=== PATIENT | male | born 1935 | race Caucasian/White ===

== ENCOUNTER 2023-08-10 14:41 | Inpatient (IN) | payer OTHER, SELFPAY ==
[2023-08-10] VITALS (12 sets, daily range): BP systolic 106–134; BP diastolic 51–71; BMI 29.0
--- NOTE | 2023-08-10 09:52 | ED.GENMED ---
History of Present Illness
<Karol Hawk PA-C - Last Filed: 08/10/23 15:54>
General
Chief Complaint: Cough
Source: patient
Time Seen by Provider: 08/10/23 09:51
Nursing documentation reviewed up to this point in time: agreed with
Travel History
Have you had any contact with someone who has COVID-19?: No
Do you have any symptoms of coronavirus? Fever > 100 degrees, chills, cough, shortness of breath, sore throat, loss of taste or smell, muscle aches, or headache?: Yes
Symptoms:: cough, fever
History of Present Illness
History of Present Illness:
87-year-old male with a past medical history of asthma, non insulin dependent diabetes, BPH, A-fib presenting emergency department today with cough for the past few weeks. Patient states that he always has a cough, however it has been getting
progressively worse the past few weeks and he developed thick yellow sputum production. Patient also states that he has had shortness of breath with this. He does not use oxygen at baseline. He developed fevers of 102 today at his rehab facility
and was seen by Dr. Bello who, due to his lower pulse ox, fever, and symptoms despite neb treatment, patient was sent to the emergency department. Patient denies chest pain, nausea or vomiting, diarrhea. Patient also complains of increasing
discomfort to his right hip wound. Patient has had this wound chronically following his hip operation. Family in room he states that patient is frequently hospitalized for pneumonia. Patient denies active drainage from the wound. Patient also
concern about possible UTI but has no active symptoms at this time patient notes that he is very fatigued and also did not take many breaks when talking.
Past History
<Karol Hawk PA-C - Last Filed: 08/10/23 15:54>
Past History
ED Past Medical History: Arrthythmia (Atrial fibrillation), Asthma, Cancer (colon), CVA, Hypercholesterolemia, NIDDM and Other (pneumonia, rectal bleeding)
ED Past Surgical History: Appendectomy, Bowel resection and Orthopedic
Social History
Tobacco: Non-smoker
Alcohol: Occasional
Drug: None
Personal:
Living: with family
Employment: Retired
Family History
Family History: Other (Noncontributory)
Review of Systems
<Karol Hawk PA-C - Last Filed: 08/10/23 15:54>
Review of Systems
All Other Systems: ROS reviewed and negative except as documented in HPI and ROS
Phy Exam
<CAROL Logan Last Filed: 08/10/23 15:54>
Physical Exam
Physical Exam:
General: Patient appears ill
Skin: 4 cm chronic wound with some mild purulence and warmth to touch, no surrounding erythema overlying right hip. No active drainage.
Head: Normocephalic, atraumatic
Cardiac: Regular rate and rhythm, no murmurs. No tenderness palpation of external chest wall
Pulm: Increased respiratory rate, increased respiratory effort, conversational dyspnea. Diffuse rhonchi heard in all lung bases. 90% on RA, 96% on 2L.
Abdomen: No tenderness to palpation, abdomen is nondistended.
Musculoskeletal: Patient is no tenderness palpation of the right hip joint, full passive range of motion.
Neuro: AAOx3, CN II-XII intact.
Course
<Karol Hawk PA-C - Last Filed: 08/10/23 15:54>
Orders/Labs/Results
Orders:
Orders
08/10/23 09:45
CBC/With Diff [Complete Blood Count/With Diff] Urgent
Comprehensive Metabolic Panel Urgent
NT-proBNP Urgent
Comment: ADD ON
08/10/23 09:48
COVID-19 Antigen Urgent
Source: Nasal Swab
Blood Culture Q30M
DAE Source: Blood/Venous
Specimen Description:
Influenza A+B Rapid Molecular Urgent
DAE Source: Nasal Swab
Specimen Description:
08/10/23 10:03
CR Chest - 2 Views Urgent
Comment:
Reason For Exam: shortness of breath
08/10/23 10:04
Urinalysis Reflex To Culture Urgent
08/10/23 10:15
Lactic Acid Urgent
Blood Culture Q30M
DAE Source: Blood/Venous
Specimen Description:
08/10/23 10:34
Ipratropium/Albuterol Sulfate [Duoneb] 3 ml INH R NOW ONE
08/10/23 11:19
Add On- LAB Urgent
Tests Added?: bnp
08/10/23 13:19
Piperacillin/Tazo 4.5 Gram [Zosyn] 4.5 gram in 100 ml IV NOW
08/10/23 13:24
Ipratropium/Albuterol Sulfate [Duoneb] 3 ml INH R NOW STA
08/10/23 14:00
VANCOMYCIN Pharmacy to Dose [VANCOCIN Pharmacy to Dose] 1 each Pharmacy To Prepare [Call Pharmacy To Prepare] 0 ml IV PER PROTOCOL
08/10/23 14:11
Admit/Transfer Patient As Directed
Co-Sign Provider:
Level of Care: Inpatient admission
Assign to:: Telemetry
Physician / Group: Dr Berto Aldana
Diagnosis: pneumonia
Reason for Telemetry: Arrhythmia
Date to Stop Telemetry: 08/13/23
Time to Stop Telemetry: 11:00
Reason for Hospitalization: pnuemonia
Expected length of stay greater than two midnights?: Yes
ELOS- Estimated Length of Stay in days: 3
I certify the patient meets the requirements for IP care: Yes
08/10/23 14:13
Code Status As Directed
Resuscitation Status: Do not resuscitate
Reached after discussion with pt or family/Healthcare POA: Yes
08/10/23 14:17
DNR Bracelet Application ONCE
08/13/23 11:00
DC Protocol for Telemetry ONCE
Abnormal Lab Results
08/10/23
09:45
WBC 10.9 H 10^3/uL
(4.8-10.8)
RBC 2.99 L 10^6/uL
(4.70-6.10)
Hgb 8.1 L g/dL
(13.0-18.0)
Hct 25.2 L %
(39.0-52.0)
MCHC 32.1 L g/dL
(33.0-37.0)
RDW 15.3 H %
(11.5-14.5)
Abs Immat Gran (auto) 0.1 H 10^3/uL
(0-0.05)
Absolute Neuts (auto) 8.5 H 10^3/uL
(1.4-6.5)
Immature Gran % 0.6 H %
(0-0.5)
Neutrophils % 78.2 H %
(42.2-75.2)
Lymphocytes % 14.5 L %
(20.5-51.1)
Creatinine 0.6 L mg/dL
(0.7-1.3)
Glucose 138 H mg/dl
(70-99)
Calcium 8.1 L mg/dl
(8.4-10.2)
Total Protein 5.6 L g/dl
(6.3-8.2)
Albumin 2.2 L g/dl
(3.5-5.0)
08/10/23 09:45
08/10/23 09:45
Vital Signs
Initial and Last Documented VS:
Initial Vital Signs
Temp Pulse Resp BP Pulse Ox
98.4 F 87 22 116/64 94
08/10/23 09:30 08/10/23 09:30 08/10/23 09:30 08/10/23 09:30 08/10/23 09:30
Last Documented Vital Signs
Temp Pulse Resp BP Pulse Ox
98.4 F 87 22 116/64 94
08/10/23 09:30 08/10/23 09:30 08/10/23 09:30 08/10/23 09:30 08/10/23 09:30
<Kvng Dolan, DO - Last Filed: 08/10/23 11:19>
Orders/Labs/Results
Orders:
Orders
08/10/23 09:45
CBC/With Diff [Complete Blood Count/With Diff] Urgent
Comprehensive Metabolic Panel Urgent
NT-proBNP Urgent
Comment: ADD ON
08/10/23 09:48
COVID-19 Antigen Urgent
Source: Nasal Swab
Blood Culture Q30M
DAE Source: Blood/Venous
Specimen Description:
Influenza A+B Rapid Molecular Urgent
DAE Source: Nasal Swab
Specimen Description:
08/10/23 10:03
CR Chest - 2 Views Urgent
Comment:
Reason For Exam: shortness of breath
08/10/23 10:04
Urinalysis Reflex To Culture Urgent
08/10/23 10:15
Lactic Acid Urgent
Blood Culture Q30M
DAE Source: Blood/Venous
Specimen Description:
08/10/23 10:34
Ipratropium/Albuterol Sulfate [Duoneb] 3 ml INH R NOW ONE
08/10/23 11:19
Add On- LAB Urgent
Tests Added?: bnp
08/10/23 13:19
Piperacillin/Tazo 4.5 Gram [Zosyn] 4.5 gram in 100 ml IV NOW
08/10/23 13:24
Ipratropium/Albuterol Sulfate [Duoneb] 3 ml INH R NOW STA
08/10/23 14:00
VANCOMYCIN Pharmacy to Dose [VANCOCIN Pharmacy to Dose] 1 each Pharmacy To Prepare [Call Pharmacy To Prepare] 0 ml IV PER PROTOCOL
08/10/23 14:11
Admit/Transfer Patient As Directed
Co-Sign Provider:
Level of Care: Inpatient admission
Assign to:: Telemetry
Physician / Group: Dr Berto Aldana
Diagnosis: pneumonia
Reason for Telemetry: Arrhythmia
Date to Stop Telemetry: 08/13/23
Time to Stop Telemetry: 11:00
Reason for Hospitalization: pnuemonia
Expected length of stay greater than two midnights?: Yes
ELOS- Estimated Length of Stay in days: 3
I certify the patient meets the requirements for IP care: Yes
08/10/23 14:13
Code Status As Directed
Resuscitation Status: Do not resuscitate
Reached after discussion with pt or family/Healthcare POA: Yes
08/10/23 14:17
DNR Bracelet Application ONCE
08/13/23 11:00
DC Protocol for Telemetry ONCE
Abnormal Lab Results
08/10/23
09:45
WBC 10.9 H 10^3/uL
(4.8-10.8)
RBC 2.99 L 10^6/uL
(4.70-6.10)
Hgb 8.1 L g/dL
(13.0-18.0)
Hct 25.2 L %
(39.0-52.0)
MCHC 32.1 L g/dL
(33.0-37.0)
RDW 15.3 H %
(11.5-14.5)
Abs Immat Gran (auto) 0.1 H 10^3/uL
(0-0.05)
Absolute Neuts (auto) 8.5 H 10^3/uL
(1.4-6.5)
Immature Gran % 0.6 H %
(0-0.5)
Neutrophils % 78.2 H %
(42.2-75.2)
Lymphocytes % 14.5 L %
(20.5-51.1)
Creatinine 0.6 L mg/dL
(0.7-1.3)
Glucose 138 H mg/dl
(70-99)
Calcium 8.1 L mg/dl
(8.4-10.2)
Total Protein 5.6 L g/dl
(6.3-8.2)
Albumin 2.2 L g/dl
(3.5-5.0)
08/10/23 09:45
08/10/23 09:45
Vital Signs
Initial and Last Documented VS:
Initial Vital Signs
Temp Pulse Resp BP Pulse Ox
98.4 F 87 22 116/64 94
08/10/23 09:30 08/10/23 09:30 08/10/23 09:30 08/10/23 09:30 08/10/23 09:30
Last Documented Vital Signs
Temp Pulse Resp BP Pulse Ox
98.4 F 87 22 116/64 94
08/10/23 09:30 08/10/23 09:30 08/10/23 09:30 08/10/23 09:30 08/10/23 09:30
<Karol Hawk PA-C - Last Filed: 08/10/23 15:54>
MDM/Problems Addressed
Differential Diagnosis Includes:
Differentials include pneumonia, influenza, COVID, acute heart failure, atrial fibrillation, asthma exacerbation
MDM/Problems Addressed:
shortness of breath
cough
Chronic conditions affecting care: DM, HTN and Asthma
Acute Exacerbation and/or Progression of Chronic Illness: DM, HTN and Asthma
<Karol Hawk PA-C - Last Filed: 08/10/23 15:54>
*Radiology
Radiology exam reviewed: preliminary read by ED provider (small right sided pleural effusion)
*Pulse Oximetry
Patient hypoxic: yes
*Critical Care Note
Total Time (30-74mins, 75-104mins- exclusive of procedures): Not Applicable
Data Reviewed
Review of Other/Old Records Reveals: Records (Reviewed ER physician documentation from 05/02/23) and Discharge Summary (Reviewed discharge summary from 05/04/2023)
Source: patient and records
<Karol Hawk PA-C - Last Filed: 08/10/23 15:54>
Patient Management
Escalation/DeEscalation of care consider admission/obs:
87-year-old male with a past medical history of asthma, non insulin dependent diabetes, BPH, A-fib presenting emergency department today with cough for the past few weeks. Patient states that he always has a cough, however it has been getting
progressively worse the past few weeks and he developed thick yellow sputum production. Patient hypoxic to 88 to 90% on room air, 96% on 2 L. Patient does not usually use oxygen at baseline. Patient has diffuse rhonchi on exam, ill-appearing.
Patient found to have right lower lobe pneumonia with no evidence for pleural effusion. Due to patient's recent hospitalization/rehab, recurrent episodes of pneumonia, patient will be started on vancomycin and Zosyn. Patient will be admitted to
hospital service, patient excepted by hospitalist.
ED Attending Note
<Karol Hawk PA-C - Last Filed: 08/10/23 15:54>
-
Portions of this chart may have been created with voice recognition software.� Occasional wrong word or��sound alike� substitutions may have occurred due to the inherent limitations of voice recognition software.
<Kvng Dloan DO - Last Filed: 08/10/23 11:19>
ED Attending Note
Patient seen and examined by attending physician: Yes
I performed the substantive portion of visit, reviewed & personally made and approve the management plan that is documented in note by myself or MARI.: Yes
ED Attending Note:
Seen with PA examined independently 87-year-old male non-smoker but used to own a bar, heavy secondhand smoke cough congestion fever admitted to [facility] recently had a hip replacement, by Dr. Naseem Ayala question of some wound dehiscence,
scheduled see Dr. Limon tomorrow--- apparently was admitted with an ileus at [facility]
Discharge Plan
Departure
Patient Disposition: Admit
Date of Disposition: 08/10/23
Time of Disposition: 13:27
Admit to: Med/Surg
Presentation/result/management discussed w/ accepting MD/DO: Hospitalist
Patient with high blood pressure during this ER visit?: No
Condition: Fair
Discharge Problem:
Hospital-acquired pneumonia, Hypoxia
Interventions
Interventions:
*Risk Screen - Suicide Last Done: 08/10/23 09:30
*General Assessment Last Done: 08/10/23 09:30
*Neglect/Abuse Screening Last Done: 08/10/23 09:30
ED- Pulmonary Assessment Last Done: 08/10/23 11:12
[2023-08-10 10:02] LABS: % Basophils 0.4 % (0-2); % Eosinophils 1.1 % (0-6); % Immature Granulocytes 0.6 % (0-0.5); % Lymphocytes 14.5 % (20.5-51.1); % Monocytes 5.2 % (1.7-9.3); % Neutrophils 78.2 % (42.2-75.2); Absolute Eosinophils 0.1 10^3/uL (0-0.7); Absolute Immature Granulocytes 0.1 10^3/uL (0-0.05); Absolute Lymphocytes 1.6 10^3/uL (1.2-3.4); Absolute Monocytes 0.6 10^3/uL (0.1-0.6); Absolute Neutrophils 8.5 10^3/uL (1.4-6.5); Hematocrit 25.2 % (39.0-52.0); Hemoglobin 8.1 g/dL (13.0-18.0); Mean Corp Hgb Conc. 32.1 g/dL (33.0-37.0); Mean Corpuscular Hgb 27.1 pg (27.0-31.0); Mean Corpuscular Volume 84.3 fL (80.0-94.0); Mean Platelet Volume 10.2 fL (7.4-10.4); Nucleated Red Blood Cells % 0 % (-); Platelet Count 305 10^3/uL (130-400); Red Blood Cell Count 2.99 10^6/uL (4.70-6.10); Red Cell Dist. Width 15.3 % (11.5-14.5); White Blood Cell Count 10.9 10^3/uL (4.8-10.8)
[2023-08-10 10:14] LABS: ALT (SGPT) 25 U/L (0-50); AST (SGOT) 35 U/L (17-59); Albumin 2.2 g/dl (3.5-5.0); Alkaline Phosphatase 123 U/L (38-126); Blood Urea Nitrogen 11 mg/dl (9-20); Calcium 8.1 mg/dl (8.4-10.2); Carbon Dioxide 23 mmol/L (22-30); Chloride 106 mmol/L (98-107); Estimated Creatinine Clearance 109 ml/min; Glucose 138 mg/dl (70-99); Potassium 3.8 mmol/L (3.5-5.1); Sodium 136 mmol/L (135-145); Total Bilirubin 0.8 mg/dl (0.2-1.3); Total Protein 5.6 g/dl (6.3-8.2); eGFR > 60.00
[2023-08-10 10:20] LABS: COVID-19 Antigen Negative (Negative)
[2023-08-10] MEDS: DUONEB 3 ML INH ×3 (10:41→17:48)
[2023-08-10 11:24] LABS: Lactic Acid 1.5 mmol/L (0.7-2.0)
[2023-08-10 12:18] LABS: NT-proBNP 2220 pg/ml
[2023-08-10] MEDS: ZOSYN 100 IV (14:18)
--- NOTE | 2023-08-10 15:08 | HPS.HSE ---
Addendum entered and electronically signed by Berto Aldana MD 08/11/23 10:07:
attending-
time spent 75 minutes
Addendum entered and electronically signed by Berto Aldana MD 08/11/23 00:11:
Attending Addendum-
I performed a history and physical exam of the patient and discussed his management with the resident. I reviewed the resident's note and agree with the documented findings and plan of care Patient presents from SNF at [facility] secondary to
hypoxia and cough has had repeated bouts of PNA in past. Patient feels sob and has wet moist cough Exam: GEN chronically ill appearing heart irreg irreg lungs diffuse rhonchi and soft LE- right hip incision from previous hip ORIF open and deep @
5cms b/l 2+ pitting edema
Plan:
# Acute Hypoxemic Respiratory Failure- wean o2 for sats > 92% cont to monitor
# Sepsis Secondary to HCAP- cont abx vanc/zosyn for broad spectrum coverage, check lactic acid and procal, reviewed cxr RLL PNA ? aspiration event, check speech eval check urine for strep/legionella c/s pulm
# Right Hip wound- opening incision from right total hip revision 07/10 - Dr. Limon, c/s ortho, wound care
# NIDDM- hold metformin start SSI accuchecks q ac q hs
# Parox A fib- cont eliquis
# HFpEF- cont lasix appears volume overloaded cont to monitor I and O daily weights
-PT OT apeech eval
-code- DNR AAOx3 d/w
Dispo Eventual DC back to [facility]
Time spent coordinating care, review of plan of care with resident, review of records, med rec, consults, notes, labs, rads, d/w nursing - mins
Original Note:
Family Physician
<Jena Mejia MD, Resident - Last Filed: 08/10/23 17:35>
-
Family Physician: Dior Dobbins
Chief Complaint
<Jena Mejia MD, Resident - Last Filed: 08/10/23 17:35>
-
cough, SOB
History of Present Illness
87-year-old male living with his in independent living facility ([facility]) with a past medical history of asthma, non insulin dependent diabetes, BPH, A-fib presenting emergency department today with cough for the past few weeks.� Patient
states that he always has a cough which has progressed with development of yellow/green sputum production. He also reports of SOB and has been getting with cough spasm. He denies dyspnea with rest.� He does not use oxygen at baseline.� Patient has
not walked since right hip replacement surgery done on 07/21/2023. The surgery was complicated with ileus which prolonged hospital stay. He was also treated with abx for 7 days for presumed pneumonia. He was then sent to rehab facility, developed
fevers at the facility and was seen by Dr Bello for his cough symptoms and was sent to ED due to low pulse ox, symptomatic with nebs. Patient denies chest pain, nausea or vomiting, diarrhea.� Patient also complains of increasing discomfort to his
right hip wound.� Patient has had this wound chronically following his hip operation.� Family in room he states that patient is frequently hospitalized for pneumonia.� Patient denies active drainage from the wound.� Patient also concern about
possible UTI but has no active symptoms at this time patient notes that he is very fatigued and also did not take many breaks when talking.
PCP is Dr Dior Dobbins . has discussed about the medical power of attornery, patient is DNR.
Medical History
<Jena Mejia MD, Resident - Last Filed: 08/10/23 17:35>
Past Medical History
Past Medical History: Reports Arrhythmia, CVA, Hypercholesterolemia and NIDDM
Additional Past Medical History:
Arrthythmia (Atrial fibrillation), Asthma, Cancer (colon), and Other (pneumonia, rectal bleeding)
Past Surgical History: Reports Appendectomy, Bowel Resection and Orthopedic (right hip replacement )
Social History
Tobacco: Non-smoker
Alcohol: Occasional
Drug: None
Personal:
Living: Assisted Living (with )
Family History
Family History: Not pertinent
Allergies / Home Medications
Allergies
Allergy/AdvReac Type Severity Reaction Status Date / Time
No Known Allergies Allergy Verified 08/10/23 09:30
Home Medications
tamsulosin 0.4 mg capsule 0.4 mg PO DAILY Urinary Issue 05/22/22
acetaminophen 500 mg tablet (Tylenol Extra Strength) 500 mg PO Q6HPRN PRN mild pain 05/02/23
apixaban 5 mg tablet (Eliquis) 5 mg PO BID@0800,2000 Blood Clot Prevention/Tx 05/02/23
atorvastatin 10 mg tablet 10 mg PO DAILY High Cholesterol 05/02/23
furosemide 20 mg tablet 20 mg PO DAILY@0900 Fluid Retention/Swelling 05/02/23
gabapentin 100 mg capsule 100 mg PO DAILY Pain 05/02/23
oxycodone 5 mg tablet 5 mg PO Q4HPRN PRN moderate pain 05/02/23
albuterol sulfate 2.5 mg/3 mL (0.083 %) solution for nebulization 2.5 mg inhalation R Q4 08/10/23
balsam manjula-castor oil topical ointment 1 applic topical Q12H@08,1999 apply to right ankle 08/10/23
beclomethasone dipropionate 80 mcg/actuation HFA breath activated aerosol (Qvar RediHaler) 2 inh inhalation R DAILY 08/10/23
budesonide 0.5 mg/2 mL suspension for nebulization 0.5 mg inhalation R DAILY 08/10/23
cholecalciferol (vitamin D3) 125 mcg (5,000 unit) tablet 125 mcg PO Q48H@0800 08/10/23
docusate sodium 100 mg capsule (Colace) 100 mg PO DAILY 08/10/23
guaifenesin 1,200 mg tablet, extended release 12 hr (Mucinex) 1,200 mg PO DAILY 08/10/23
metformin 1,000 mg tablet 1,000 mg PO DAILY 08/10/23
oxycodone 5 mg tablet 10 mg PO Q4HPRN PRN severe pain 08/10/23
phenol 1.4 % mucosal aerosol spray (Chloraseptic Throat [place]) 2 spray mucous membrane Q2H PRN sore throat 08/10/23
polyethylene glycol 3350 17 gram oral powder packet (Miralax) 17 g PO DAILY PRN constipation 08/10/23
sennosides 8.6 mg tablet (senna) 8.6 mg PO DAILY 08/10/23
Allergies reflects when Allergies were last updated in CoverMyMeds.
Home Medications with original date entered in CoverMyMeds
Allergy/Medication List:
no allergies
<Berto Aldana MD - Last Filed: 08/10/23 23:56>
Social History
Living: Assisted Living (with Lillian Parekh)
Review of Systems
<Jena Mejia MD, Resident - Last Filed: 08/10/23 17:35>
-
History Source: Patient and Family
Constitutional: Reports Fever and Fatigue
Respiratory: Reports Cough
Cardiac: Reports No Symptoms
Abdomen/GI: Reports No Symptoms
: Reports No Symptoms
Musculoskeletal: Reports No Symptoms
Skin: Reports Other (discomfort in the right hip wound )
Neurological: Reports No Symptoms
Endocrine: Reports No Symptoms
Hematologic/Lymphatic: Reports No Symptoms
Psych: Reports Calm
Physical Exam
<Jena Mejia MD, Resident - Last Filed: 08/10/23 17:35>
Vital Signs
Vital Signs
Temp Pulse Resp BP Pulse Ox
98.4 F 87 22 116/64 94
08/10/23 09:30 08/10/23 09:30 08/10/23 09:30 08/10/23 09:30 08/10/23 09:30
Physical Exam
General: Appears in Distress and Morbidly Obese
HEENT: NormoCephalic and Anicteric
Respiratory: Rhonchi (diffuse bilaterally )
Cardiac: S1/S2 and Regular Rhythm
Breast: Deferred by me
GI: Soft, Non Tender and Non Distended
Genito-urinary: Deferred by me
Musculoskeletal: Edema, Left Lower Extremity (2+) and Edema, Right Lower Extremity (2+)
Skin: Other (3-4 cm chronic would, erythematous, warm to touch on right hip covered with gauze )
Neuro: Awake, Alert and Oriented
Hematologic/Lymphatic: No Lymphadenopathy
Psych: Calm
<Berto Aldana MD - Last Filed: 08/10/23 23:56>
Physical Exam
General: Obese
Skin: Other (3-4 cm linear right hip wound)
Laboratory Results
<Jena Mejia MD, Resident - Last Filed: 08/10/23 17:35>
-
08/10/23 09:45
08/10/23 09:45
Laboratory Results
Lactic Acid 1.5 mmol/L (0.7-2.0) 08/10/23 10:15
Total Bilirubin 0.8 mg/dl (0.2-1.3) 08/10/23 09:45
AST 35 U/L (17-59) 08/10/23 09:45
ALT 25 U/L (0-50) 08/10/23 09:45
Alkaline Phosphatase 123 U/L (38-126) 08/10/23 09:45
Data Reviewed
<Jena Mejia MD, Resident - Last Filed: 08/10/23 17:35>
-
Diagnostic Radiology: Discussed with Physician
Medical Tests (Nuc Med, Echo, EKG etc): Report Reviewed by me
Lab Data: Labs Reviewed by me and Discussed with Physician
Impression/Plan
<Jena Mejia MD, Resident - Last Filed: 08/10/23 17:35>
-
IMPRESSION:
Sepsis secondary to hospital acquired pneumonia
Acute hypoxic respiratory failure
Right hip wound
NIDDM
History of asthma
BPH
PLAN:
Sepsis secondary to hospital acquired pneumonia
- continue van and zosyn
- checking blood cultures x 2 , sputum cultures
- urine antigen for strep pneumonia, legionellae.
- check lactic acid
- check procalcitonin
CXR 08/09- Interval development of parenchymal opacity within the right mid to lower lung, which is highly suggestive of pneumonia. No convincing evidence for significant associated pleural effusion. Mild reticulonodular parenchymal opacity within
the left lower lung, which probably represents mild pneumonitis in the left lower lung.
Acute hypoxic respiratory failure
- On 2 L oxygen
- wean O2 stats with goal spo2 >92
Right hip wound
- wound care evaluation and treat
- Consult [facility]
NIDDM
- start medium dose insulin sliding scale
- hold metformin
History of asthma
- start duonebs q6 , continue budesonide BID
BPH
- continue tamsulosin
DVT prophylaxis
continue Eliquis
[2023-08-10] MEDS: VANCOCIN 540 MG IV (16:49)
[2023-08-10 18:13] LABS: Urine Albumin Negative (Neg - Trace); Urine Bilirubin 1+ (Negative); Urine Character Clear (Clear); Urine Color Amber; Urine Glucose Negative (Negative); Urine Ketone Trace (Negative); Urine Leukocyte 2+ (Negative); Urine Nitrite Negative (Negative); Urine Occult Blood Negative (Negative); Urine Urobilinogen 1+ (Neg - 1+)
[2023-08-10 18:18] LABS: Lactic Acid 1.5 mmol/L (0.7-2.0)
[2023-08-10 18:19] LABS: Urine Bacteria Moderate (Negative); Urine Red Blood Cell 0-2 /HPF (0-2); Urine Squamous Cell 0-2 /LPF (Few)
[2023-08-10 18:33] LABS: Procalcitonin 0.14 ng/ml (0.0-0.25)
[2023-08-10] MEDS: PULMICORT 0.5 MG INH (20:06)
[2023-08-10] MEDS: ELIQUIS 5 MG PO (21:09)
[2023-08-10 21:21] LABS: Glucose - Point of Care 102 mg/dl (70-99)
--- NOTE | 2023-08-10 23:43 | PHA.VAN.IN ---
Addendum entered and electronically signed by Danuta Escobar [facility] 08/11/23 08:49:
Correction: Vanc 1500mg Q12H provided the following patient-specific PK in Apr 2022:
Extrapolated Cmax (mcg/mL): 20 (drawn: Appropriately)
Extrapolated Cmin (mcg/mL): 10.3
Calculated AUC (mcg*h/mL): 354
Calculated ke: 0.0637
Calculated half life (H): 10.9
Calculated Vd (L): 133.11
Calculated Vanc CL (ml/min): 141.22
Levels were drawn: Pre-steady state (to assess if pt was clearing vancomycin appropriately)
Levels drawn after 3rd maintenance dose
Original Note:
Assessment
- Assessment
Renal Function: Appears similar to baseline
Concomitant Antimicrobials: ZOSYN
- Previous Dosing Experience
Previous Regimen: 1500MG IV Q12H
Date of Regimen: 05/23/24
Provided Trough of: 10
Provided AUC of: 548 PREDICTED
Patient's SCR is: Decreased compared to previous dosing experience (05/23/24 SCR = 0.8)
Patient's weight is: Decreased compared to previous dosing experience (05/23/22 WT = 118.1 KG)
AUC Dosing Plan
- Dosing Variables
Dosing Weight (kg): 108
Dosing CrCl (ml/min): 100
Vd coefficient (L/kg): 0.7
- Empiric Dosing
Initial / Loading Dose: 2GM
Maintenance Regimen: 1500MG IV Q12H
Estimated AUC (mcg*h/mL): 484
Estimated Peak (mcg*h/mL): 30.5
Estimated Trough (mcg/ml): 12.2
Estimated Half Life (H): 7.9
Pharmacokinetics Vancomycin I
- -
Patient Age: 87
Patient Sex: Male
Vancomycin Day #: 1
Indication: Pulmonary/Respiratory (SEPSIS)
Requesting Provider: SCAMMAHORN
Height / Weight:
Height 6 ft 4 in
Actual Weight 107.955 kg
- Vital Signs / Lab Results
Temp Pulse Resp BP Pulse Ox
98.8 F 101 16 115/51 97
08/10/23 18:40 08/10/23 20:10 08/10/23 20:10 08/10/23 18:40 08/10/23 20:10
Lab Results - Hematology
08/10/23
09:45
WBC 10.9 H
Lab Results - Chemistry
08/10/23
09:45
BUN 11
Creatinine 0.6 L
Estimated Creat Clear 109
Albumin 2.2 L
08/10/23 08/10/23
10:15 17:45
Lactic Acid 1.5 1.5
Lab Results - Urine
08/10/23
18:07
Urine Nitrite (Reflex) Negative
Leukocyte Esterase Rfl 2+ A
Urine WBC (Reflex) 11-15 A
Ur Squamous Epith Cells 0-2
Urine Bacteria (Reflex) Moderate A
Microbiology Results
08/10/23 18:07 Legionella Urinary Antigen - Final
Urine Negative for Legionella pneumophila Serogroup 1 antigen.
A negative result does not rule out the possiblity of
Legionella infection due to other serogroups or species of
Legionella. Clinical correlation is recommended.
Streptococcus pneumoniae Antigen (M - Final
Negative for Streptococcus pneumoniae antigen.
A negative result does not exclude infection with
Streptococcus pneumoniae. Clinical correlation is
recommended.
08/10/23 09:48 Influenza Types A & B (MILADY) - Final
Nasal Swab Negative for Influenza A & B, NAAT
Negative results must be combined with clinical observations
and patient history.
Nucleic Acid Amplification test (NAAT)performed on the
[employer] platform.
[2023-08-10] MEDS: ZOSYN 50 IV (23:59)
[2023-08-11 00:13] LABS: Glucose - Point of Care 98 mg/dl (70-99)
--- NOTE | 2023-08-11 00:40 | PTCARENOTE ---
1944 swallow screen done and per pt is on thickened liquids at [facility], therefore pt made NPO per protocol. Mark DROPHAMMER OPERATOR made aware of pt's home meds, including eliquis and that pt had been taking sips of seltzer from family in the ED. Pt has
cough, but per family it is chronic. Mark ARANDA made pt NPO x meds. At 0006 noted that canceled NPO order and reverted to advance diet as coleman to [address] saad diabetic diet.
[2023-08-11 03:00] VITALS: BP 127/56
[2023-08-11] MEDS: DUONEB INH (03:55)
[2023-08-11] MEDS: ZOSYN 50 IV ×4 (05:24→23:36)
[2023-08-11] MEDS: VANCOCIN 300 MG IV ×2 (05:58→18:23)
[2023-08-11] MEDS: VANCOCIN 300 ML IV ×2 (05:58→18:23)
--- NOTE | 2023-08-11 07:18 | W.PN.UPDATE ---
Update Note
Progress Note Update
Pt seen and chart reviewed
Minimal opening of central wound
Less than 1cm and no drainage/redness
Rec; Bacitracin/large bandaid to area 2x/day
Have F/U with Dr. Limon as outpt upon DC
thanks
GGMD
[2023-08-11 07:20] VITALS: BP 125/71
[2023-08-11 07:31] LABS: Glucose - Point of Care 97 mg/dl (70-99)
[2023-08-11] MEDS: PULMICORT 0.5 MG INH ×2 (08:04→19:42)
[2023-08-11] MEDS: DUONEB 3 ML INH ×3 (08:04→19:41)
--- NOTE | 2023-08-11 08:42 | PHA.VAN.FU ---
Vancomycin Assessment / Plan
- Assessment
Renal Function: No New Labs Today
In the past 24 hrs, patient has been: Afebrile
Concomitant Antimicrobials: piperacillin/tazobactam
- Dosing Plan
Continue: Vanc 1500mg Q12H
- Monitoring Plan
No level(s) ordered at this time: consider levels in next few days - give time for accumulation
- Follow Up
Pharmacy will continue to follow.
Vancomycin Follow UP
- -
Patient Age: 87
Patient Sex: Male
Vancomycin Day #: 2
Indication: Pulmonary/Respiratory
Requesting Provider: Sunita Schrader
Pertinent Antimicrobial Allergies:
NKDA
Height / Weight:
Height 6 ft 4 in
Actual Weight 107.955 kg
Pertinent Past Medical History: DM
- Vital Signs / Lab Results
Temp Pulse Resp BP Pulse Ox
98.5 F 87 16 125/71 95
08/11/23 07:20 08/11/23 07:20 08/11/23 07:20 08/11/23 07:20 08/11/23 07:20
Lab Results - Hematology
08/10/23
09:45
WBC 10.9 H
Lab Results - Chemistry
08/10/23
09:45
BUN 11
Creatinine 0.6 L
Estimated Creat Clear 109
Albumin 2.2 L
08/10/23 08/10/23
10:15 17:45
Lactic Acid 1.5 1.5
Lab Results - Urine
08/10/23
18:07
Urine Nitrite (Reflex) Negative
Leukocyte Esterase Rfl 2+ A
Ur Squamous Epith Cells 0-2
Microbiology Results
08/10/23 18:07 Legionella Urinary Antigen - Final
Urine Negative for Legionella pneumophila Serogroup 1 antigen.
A negative result does not rule out the possiblity of
Legionella infection due to other serogroups or species of
Legionella. Clinical correlation is recommended.
Streptococcus pneumoniae Antigen (M - Final
Negative for Streptococcus pneumoniae antigen.
A negative result does not exclude infection with
Streptococcus pneumoniae. Clinical correlation is
recommended.
08/10/23 09:48 Influenza Types A & B (MILADY) - Final
Nasal Swab Negative for Influenza A & B, NAAT
Negative results must be combined with clinical observations
and patient history.
Nucleic Acid Amplification test (NAAT)performed on the
[employer] platform.
[2023-08-11] MEDS: DESENEX/MITRAZOL/ZEASORB 1 APPLIC TOPICAL ×2 (08:48→21:42)
[2023-08-11] MEDS: COLACE 100 MG PO (08:49)
[2023-08-11] MEDS: NEURONTIN 100 MG PO (08:49)
[2023-08-11] MEDS: FLOMAX 0.400000000000000022 MG PO (08:49)
[2023-08-11] MEDS: LASIX 20 MG PO (08:49)
[2023-08-11] MEDS: ELIQUIS 5 MG PO ×2 (08:49→19:48)
[2023-08-11] MEDS: LIPITOR 10 MG PO (08:50)
[2023-08-11] MEDS: SENOKOT 8.59999999999999964 MG PO (08:50)
--- NOTE | 2023-08-11 10:05 | PTOTSP ---
Speech Therapy Swallowing Assessment
Patient with history of silent aspiration as far back as December 2013, multiple admisions for pneumonia as well as need for thickened liquids.
Recommend:
1. Regular Solids and Mildly Thick Liquids
2. Meds whole in applesauce.
3. Aspiration Precautions.
4. VSE for updated objective assessment of swallow function.
5. ARHP determination after results of VSE
[2023-08-11 10:27] LABS: % Basophils 0.3 % (0-2); % Eosinophils 2.3 % (0-6); % Immature Granulocytes 0.6 % (0-0.5); % Lymphocytes 14.4 % (20.5-51.1); % Monocytes 5.6 % (1.7-9.3); % Neutrophils 76.8 % (42.2-75.2); Absolute Eosinophils 0.2 10^3/uL (0-0.7); Absolute Immature Granulocytes 0.1 10^3/uL (0-0.05); Absolute Lymphocytes 1.3 10^3/uL (1.2-3.4); Absolute Monocytes 0.5 10^3/uL (0.1-0.6); Absolute Neutrophils 7.1 10^3/uL (1.4-6.5); Hematocrit 24.9 % (39.0-52.0); Mean Corp Hgb Conc. 32.1 g/dL (33.0-37.0); Mean Corpuscular Hgb 26.8 pg (27.0-31.0); Mean Corpuscular Volume 83.6 fL (80.0-94.0); Mean Platelet Volume 9.5 fL (7.4-10.4); Nucleated Red Blood Cells % 0 % (-); Platelet Count 292 10^3/uL (130-400); Red Blood Cell Count 2.98 10^6/uL (4.70-6.10); Red Cell Dist. Width 15.6 % (11.5-14.5); White Blood Cell Count 9.3 10^3/uL (4.8-10.8)
[2023-08-11 10:59] LABS: Blood Urea Nitrogen 14 mg/dl (9-20); Calcium 7.9 mg/dl (8.4-10.2); Carbon Dioxide 23 mmol/L (22-30); Chloride 106 mmol/L (98-107); Estimated Creatinine Clearance 59 ml/min; Glucose 114 mg/dl (70-99); Potassium 3.5 mmol/L (3.5-5.1); Sodium 137 mmol/L (135-145); eGFR > 60.00
--- NOTE | 2023-08-11 11:36 | CM ---
Patient seen bedside.
IA completed with spouse in room.
Patient lives with spouse in a [place] and old community in a apartment with elevator access and handicap accessible bathroom.
Prior to last skilled rehab admission, patient was ambulating with a RW due to recent fx hip.
Plan is to return to [facility] prior to home, patients spouse is paying for a bed hold.
Spoke with Joellen at [facility] and bed hold verified. Referral placed.
PCP: Dr Dobbins
Pharmacy: [facility]
Plan: back to the [facility].
[2023-08-11 11:45] VITALS: BP 104/59
[2023-08-11] MEDS: POLYSPORIN/DOUBLE ANTIBIOTIC 1 APPLIC TOPICAL (12:08)
[2023-08-11 12:41] LABS: Glucose - Point of Care 120 mg/dl (70-99)
[2023-08-11 13:16] LABS: Glycohemoglobin (HgbA1c) 6.5 % (4.0-5.6)
--- NOTE | 2023-08-11 13:50 | WOUNDNOTE ---
RIGHT HIP WOUND
--- NOTE | 2023-08-11 13:54 | WOUNDNOTE ---
[facility] RN note: Patient admitted with hypoxia
See H&P for complete history.
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
Wound Location and type/assessment: Assessment completed with RNKvng. also at bedside and ewas updated on assessment and plan. Patient admitted with: Stage 2 of sacrum, pink wound bed. reports patient has had this wound since a prior
hospital admission. Condom cath placed for moisture management. DTI of left heel, purple/reddish ecchymosis, no opening or drainage noted. aware of left heel wound and stated it happened recently at SNF. This resume writer showed wound to and
explained that wound may open or worsen. states understanding. Right heel boggy, stage 1 PI. Patient has bilateral LE +2 edema and pulses were not felt or audible. Patients chronic left hip was was recently assessed by Dr. Bran and wound
care performed per order. Patient requires the assistance of 2 people to turn in bed.
Appetite: Ate 50% of breakfast. reports decrease appetite.
Pressure redistribution devices in place: Static air overlay added to bed, fiber-filled boots to bilateral heels.
Plan: Local wound care provided to sacrum with silicone foam. Zinc ointment may also be used on open wound if condom cath fails and moisture becomes an issue. No-sting barrier and silicone foam applied to bilateral heels. Fiber filled boots applied
to both heels. Hospitalist made aware of negative bilateral pedal pulses. Will defer to hospitalist for possible vascular consult for LLE heel DTI. Will confirm orders with hospitalist and update nurse. Updated care plan and will follow as needed.
Note to case management of equipment requested for discharge:
Recommend follow up at wound care center upon discharge.
[2023-08-11 14:45] VITALS: BP 119/59
[2023-08-11 14:47] VITALS: BMI 29.0
--- NOTE | 2023-08-11 14:59 | W.PN.HOSP.TC ---
Addendum entered and electronically signed by Berto Aldana MD 08/11/23 21:56:
Attending Addendum-
I saw and evaluated the patient. I reviewed the resident�s note and agree with findings and plan as documented in the resident�s note. Feels fatigued and mildly improved, less SOB. Exam: GEN chronically ill appearing heart irreg irreg lungs diffuse
rhonchi and soft LE- right hip bandaged, b/l 2+ pitting edema
Plan:
# Acute Hypoxemic Respiratory Failure- wean o2 for sats > 92% cont to monitor
# Sepsis Secondary to HCAP- cont abx vanc/zosyn for broad spectrum coverage, procal neg, likely aspiration pna, check speech eval urine for strep/legionella-neg c/s pulm-P - poor prog
# Right Hip wound- opening incision from right total hip revision 07/10 - Dr. Limon, appreciate ortho input- cont wound care f/u ortho as OP
# NIDDM- hold metformin start SSI accuchecks q ac q hs
# Parox A fib- cont eliquis
# HFpEF- cont lasix appears volume overloaded cont to monitor I and O daily weights start IV lasix
# Dysphagia- nectar thick liquids- video swallow in am
-PT OT speech
-code- DNR AAOx3 d/w
Dispo Eventual DC back to [facility]
Time spent coordinating care, review of plan of care with resident, review of records, med rec, consults, notes, labs, rads, d/w nursing, family - 55 mins
Original Note:
Documented by User: Jena Mejai MD, Resident 08/11/23 17:09
Today's Communication/Plan
-
IV lasix 40 mg daily
MAIRA
Video swallow study
Assessment / Plan
Assessment / Plan
IMPRESSION:
Sepsis secondary to hospital acquired pneumonia
Acute hypoxic respiratory failure
Aspiration
Edema
Right hip wound
Edema
NIDDM
History of asthma
BPH
PLAN:
Sepsis secondary to hospital acquired pneumonia
- continue van and zosyn
- checking blood cultures x 2 , sputum cultures
- urine antigen for strep pneumonia, legionellae.
- check lactic acid
- check procalcitonin
CXR 08/09- Interval development of parenchymal opacity within the right mid to lower lung, which is highly suggestive of pneumonia. No convincing evidence for significant associated pleural effusion. Mild reticulonodular parenchymal opacity within
the left lower lung, which probably represents mild pneumonitis in the left lower lung.
Acute hypoxic respiratory failure
- on room air
Aspiration
speech eval appreciated
ordering video swallow
switching to full thick liquid
LE Edema with decreased peripheral pulses
-new onset of increasing LE 2+ pitting edema bilaterally
-starting on IV 40 mg lasix daily
MAIRA ordered to r/o PVD
Right hip wound
-�wound care evaluation and treat
- [facility] eval appreciated
NIDDM
-�start medium dose insulin sliding scale
- hold metformin
History of asthma
�- start duonebs q6 , continue budesonide BID
BPH
- continue tamsulosin
DVT prophylaxis
continue Eliquis
Anticipated Discharge: > 48 hours
Subjective/Interval History
-
Date of Service: August 11, 2023
Patient c/o being more fatigue, cough persistent.
Objective Data
-
Labs:
Laboratory Results
08/11/23
10:15
WBC 9.3
Hgb 8.0 L
Hct 24.9 L
Plt Count 292
Sodium 137
Potassium 3.5
Chloride 106
Carbon Dioxide 23
BUN 14
Creatinine 1.1
Glucose 114 H
Calcium 7.9 L
Vital Signs:
Vital Signs
Temp Pulse Resp BP Pulse Ox
98.0 F 88 16 104/59 97
08/11/23 11:45 08/11/23 14:14 08/11/23 14:14 08/11/23 11:45 08/11/23 14:14
I&O
08/10/23 08/11/23 08/12/23
06:59 06:59 06:59
Intake Total 400 / 400
Balance 400 / 400
Review of Systems
-
History Source: Patient and Family
All other systems: Reviewed and negative (except mentioned )
Constitutional: Reports Fatigue
Respiratory: Reports Cough
Physical Exam
-
General: Respiratory Distress
HEENT: Normocephalic and Atraumatic
Respiratory: Rhonchi (diffuse bilaterally )
Cardiac: Regular Rhythm and S1/S2
GI: Soft and Nontender
Musculoskeletal: Edema, Right Lower Extrem (2+ pitting ) and Edema, Left Lower Extrem (2+ pitting )
Skin: Ulcers (heel )
Neuro: Awake
Hematologic / Lymphatic: No Lymphadenopathy
Data Reviewed
-
Labs: Labs Reviewed by me and Discussed with Physician

Documented by User: Berto Aldana MD 08/11/23 21:50
Subjective/Interval History
-
Patient c/o being more fatigue, cough persistent.
[2023-08-11] MEDS: LASIX 40 MG IV (17:37)
[2023-08-11 18:08] LABS: Glucose - Point of Care 112 mg/dl (70-99)
[2023-08-11 19:20] VITALS: BP 118/54
[2023-08-11] MEDS: POLYSPORIN/DOUBLE ANTIBIOTIC TOPICAL (19:45)
[2023-08-11 21:33] LABS: Glucose - Point of Care 97 mg/dl (70-99)
[2023-08-11 23:05] VITALS: BP 105/45
[2023-08-12] MEDS: DUONEB 3 ML INH ×3 (01:55→14:20)
[2023-08-12 03:00] VITALS: BP 105/59
[2023-08-12] MEDS: ZOSYN 50 IV (05:28)
[2023-08-12 06:00] VITALS: BMI 28.4
[2023-08-12] MEDS: VANCOCIN 300 ML IV (06:19)
[2023-08-12] MEDS: VANCOCIN 300 MG IV (06:19)
[2023-08-12 07:00] VITALS: BP 123/68
[2023-08-12] MEDS: PULMICORT 0.5 MG INH (07:45)
[2023-08-12 07:55] LABS: Glucose - Point of Care 100 mg/dl (70-99)
[2023-08-12 08:12] LABS: % Basophils 0.4 % (0-2); % Eosinophils 2.1 % (0-6); % Immature Granulocytes 0.6 % (0-0.5); % Lymphocytes 15.8 % (20.5-51.1); % Monocytes 5.9 % (1.7-9.3); % Neutrophils 75.2 % (42.2-75.2); Absolute Eosinophils 0.2 10^3/uL (0-0.7); Absolute Immature Granulocytes 0.1 10^3/uL (0-0.05); Absolute Lymphocytes 1.3 10^3/uL (1.2-3.4); Absolute Monocytes 0.5 10^3/uL (0.1-0.6); Absolute Neutrophils 6.2 10^3/uL (1.4-6.5); Hematocrit 25.8 % (39.0-52.0); Hemoglobin 8.3 g/dL (13.0-18.0); Mean Corp Hgb Conc. 32.2 g/dL (33.0-37.0); Mean Corpuscular Hgb 26.9 pg (27.0-31.0); Mean Corpuscular Volume 83.5 fL (80.0-94.0); Nucleated Red Blood Cells % 0 % (-); Platelet Count 317 10^3/uL (130-400); Red Blood Cell Count 3.09 10^6/uL (4.70-6.10); Red Cell Dist. Width 15.4 % (11.5-14.5); White Blood Cell Count 8.2 10^3/uL (4.8-10.8)
[2023-08-12] MEDS: SENOKOT 8.59999999999999964 MG PO (08:20)
[2023-08-12] MEDS: LIPITOR 10 MG PO (08:20)
[2023-08-12] MEDS: DESENEX/MITRAZOL/ZEASORB 1 APPLIC TOPICAL ×2 (08:20→20:05)
[2023-08-12] MEDS: ELIQUIS 5 MG PO ×2 (08:20→20:04)
[2023-08-12] MEDS: LASIX 20 MG PO (08:20)
[2023-08-12] MEDS: FLOMAX 0.400000000000000022 MG PO (08:21)
[2023-08-12] MEDS: LASIX 40 MG IV (08:21)
[2023-08-12] MEDS: COLACE 100 MG PO (08:21)
[2023-08-12] MEDS: NEURONTIN 100 MG PO (08:21)
[2023-08-12 08:40] LABS: Blood Urea Nitrogen 19 mg/dl (9-20); Calcium 7.8 mg/dl (8.4-10.2); Carbon Dioxide 21 mmol/L (22-30); Chloride 108 mmol/L (98-107); Estimated Creatinine Clearance 43 ml/min; Glucose 96 mg/dl (70-99); Potassium 3.7 mmol/L (3.5-5.1); Sodium 139 mmol/L (135-145); eGFR 45.06
--- NOTE | 2023-08-12 09:03 | PN.CDI ---
CDI
- -
CDI:
Physician Documentation Request
Admit Date: 08/10/23 14:41
Dear Doctor Jovan,
Patient admitted for sepsis.
08/09 Pro BNP: 2220 pg/ml
08/10 Hospitalist PN: 'HFpEF- cont lasix appears volume overloaded cont to monitor I and O daily weights start IV lasix'
Clarify which of the following accurately represents the acuity of the heart failure. Possible options might include:
Acute on chronic
Acute
Chronic
Other
Use of terms such as suspected, likely, concern for, or probable (associated with a specific diagnosis that is being evaluated, monitored, or treated as if it exists) are acceptable and can be coded in the inpatient setting, when documented at the
time of discharge.
Thank you,
Viviane Shearer RN, BSN
CDI Specialist
Available via [place] text
Please use your independent medical judgment in providing your response.
--- NOTE | 2023-08-12 09:49 | PHA.VAN.FU ---
Vancomycin Assessment / Plan
- Assessment
Renal Function: SCR Increasing
WBC's are: WNL
In the past 24 hrs, patient has been: Afebrile
Concomitant Antimicrobials: piperacillin/tazobactam
- Dosing Plan
Adjust Regimen to: dosing by level for increasing SCR
Dosing Comments: received last dose of 1500mg 08/11 06:19
- Monitoring Plan
Random Level: 08/12 0600
- Follow Up
Pharmacy will continue to follow.
Vancomycin Follow UP
- -
Patient Age: 87
Patient Sex: Male
Vancomycin Day #: 3
Indication: Pulmonary/Respiratory
Requesting Provider: Sunita Schrader
Pertinent Antimicrobial Allergies:
NKDA
Height / Weight:
Height 6 ft 4 in
Actual Weight 105.857 kg
Pertinent Past Medical History: DM
- Vital Signs / Lab Results
Temp Pulse Resp BP Pulse Ox
97.6 F 89 16 123/68 98
08/12/23 07:00 08/12/23 08:21 08/12/23 07:50 08/12/23 08:21 08/12/23 07:50
Lab Results - Hematology
08/10/23 08/11/23 08/12/23
09:45 10:15 07:23
WBC 10.9 H 9.3 8.2
Lab Results - Chemistry
08/10/23 08/11/23 08/12/23
09:45 10:15 07:23
BUN 11 14 19
Creatinine 0.6 L 1.1 1.5 H
Estimated Creat Clear 109 59 43
Albumin 2.2 L
08/10/23 08/10/23
10:15 17:45
Lactic Acid 1.5 1.5
Microbiology Results
08/10/23 20:29 Blood Culture - Preliminary
Blood/Venous No Growth in 24 hours- Final report to follow
08/10/23 18:07 Urine Culture - Final
Urine NO GROWTH
08/11/23 08:50 Nasal Screen MRSA (PCR) - Final
Nose MRSA not detected - performed by PCR methodology.
08/10/23 10:15 Blood Culture - Preliminary
Blood/Venous No Growth in 24 hours- Final report to follow
08/10/23 09:48 Blood Culture - Preliminary
Blood/Venous No Growth in 24 hours- Final report to follow
08/10/23 18:07 Legionella Urinary Antigen - Final
Urine Negative for Legionella pneumophila Serogroup 1 antigen.
A negative result does not rule out the possiblity of
Legionella infection due to other serogroups or species of
Legionella. Clinical correlation is recommended.
Streptococcus pneumoniae Antigen (M - Final
Negative for Streptococcus pneumoniae antigen.
A negative result does not exclude infection with
Streptococcus pneumoniae. Clinical correlation is
recommended.
08/10/23 09:48 Influenza Types A & B (MILADY) - Final
Nasal Swab Negative for Influenza A & B, NAAT
Negative results must be combined with clinical observations
and patient history.
Nucleic Acid Amplification test (NAAT)performed on the
[employer] platform.
[2023-08-12 11:17] VITALS: BP 120/69
--- NOTE | 2023-08-12 12:22 | PTOTSP ---
Addendum entered and electronically signed by ST Eugenio 08/12/23 12:27:
5. No straws
Original Note:
Video Swallow Examination
Patient with mild oral and moderate-severe pharyngeal dysphagia for consistencies assessed. There was silent aspiration of pharyngeal residue with thin liquids via cup with a chin tuck and mildly thick liquids via straw. Patient could not initiate
a dry swallow to clear moderate vallecular residue with solids and a thin liquid wash via tsp resulted in silent aspiration. Solids not assessed, as patient was unable to tolerate full test due to discomfort.
At this time, patient felt to be at a high risk to aspirate after the swallow due to presence of pharyngeal residue noted throughout the study. Patient currently admitted with concern for aspiration pneumonia. Consider discussing patient goals of
care regarding nutrition/hydration. If patient/family opting for oral diet understanding aspiration risks, consider diet below:
1. IDDSI Level 4 (Puree), IDDSI Level 2 (Mildly Thick Liquids) via tsp/cup
2. Strategies: upright to 90 degrees, small single sips/bites, double swallow (or alternate sip/bites if unable) to try and clear residue from throat
3. Oral care 3-5x daily to reduce oral bacteria which could contribute to risk for aspiration complications
4. Dysphagia therapy warranted for patient/family education and rehabilitation of pharyngeal stage of swallowing pending goals of care.
--- NOTE | 2023-08-12 13:15 | CM ---
call from dr boss that patient stable for discharge back to [facility].called and spoke with [facility] who wants patient to transport back to facility after 3 pm.[facility] to facility.patient
will need an out of hospital dnr form signed.spoke with who is comfortable with dc back to [facility] on hospice.
[2023-08-12] MEDS: ZOSYN IV (14:29)
--- NOTE | 2023-08-12 14:33 | PTOTSP ---
LABORER [employer]AC[employer] Note
Education completed with patient's family about results/recommendations from swallowing study. Patient transitioning to hospice level of care. No further therapy warranted at this time.
[2023-08-12 15:37] VITALS: BP 125/65
--- NOTE | 2023-08-12 15:55 | CM ---
spoke with [facility] at [facility].family really wants patient to return to facility today.patient will be going on hospice with [facility].transport is scheduled for 8:30 pm back to the [facility].text sent to doctor to sign out of hospital
dnr form.
phone number to call report is [phone].and fax number is [phone].
[2023-08-12] MEDS: POLYSPORIN/DOUBLE ANTIBIOTIC 1 APPLIC TOPICAL ×2 (17:11→20:06)
[2023-08-12 18:25] LABS: Glucose - Point of Care 111 mg/dl (70-99)
--- NOTE | 2023-08-12 18:36 | PTCARENOTE ---
attempted several times to call to give report to receiving RN at [facility] [phone]. Voicemail left to receiving facility with call back number and current RN.
[2023-08-12 19:00] VITALS: BP 131/68
[2023-08-12 20:00] VITALS: BP 122/65
--- NOTE | 2023-08-12 20:47 | PTCARENOTE ---
Pt. was discharged to [facility] on hospice, report given, ambulance picked up.
--- NOTE | 2023-08-12 20:49 | W.PN.HOSP.TC ---
Addendum entered and electronically signed by Berto Aldana MD 08/12/23 21:09:
Attending Addendum-
I saw and evaluated the patient. I reviewed the resident�s note and agree with findings and plan as documented in the resident�s note. Feels fatigued wants to go home and stop all treatment,� Exam: GEN chronically ill appearing heart irreg irreg
lungs diffuse rhonchi and soft LE- right hip bandaged,� b/l 2+ pitting edema
Plan:
# Sepsis Secondary to HCAP- likely aspiration aspiration - poor prog DC home on hospice
# Dysphagia/Aspiration- poor prog- DC home on hospice at facility
-code- DNR AAOx3 d/w
Dispo DC back to [facility] today for hospice at facility
Time spent coordinating care, review of plan of care with resident, review of records, med rec, DC planning, transition of care, consults, notes, labs, rads, d/w nursing, family - 40 mins
Original Note:
Today's Communication/Plan
-
discontinuing all medications, patient and family agreed on hospice care
talked to the case consultant for transport arrangement to [facility]
Assessment / Plan
Assessment / Plan
IMPRESSION:
Sepsis secondary to hospital acquired pneumonia
Acute hypoxic respiratory failure
Aspiration
Edema
Right hip wound
Edema
NIDDM
History of asthma
BPH
PLAN:
Sepsis secondary to hospital acquired pneumonia
- continue van and zosyn
- checking blood cultures x 2 , sputum cultures
- urine antigen for strep pneumonia, legionellae.
- check lactic acid
- check procalcitonin
CXR 08/09- Interval development of parenchymal opacity within the right mid to lower lung, which is highly suggestive of pneumonia. No convincing evidence for significant associated pleural effusion. Mild reticulonodular parenchymal opacity within
the left lower lung, which probably represents mild pneumonitis in the left lower lung.
discontinuing all medications, patient and family agreed on hospice care
Acute hypoxic respiratory failure
- on room air
Aspiration
speech eval appreciated
ordering video swallow
switching to full thick liquid
LE Edema with decreased peripheral pulses
-new onset of increasing LE 2+ pitting edema bilaterally
-starting on IV 40 mg lasix daily
MAIRA ordered to r/o PVD
Right hip wound
-�wound care evaluation and treat
- [facility] eval appreciated
NIDDM
-�start medium dose insulin sliding scale
- hold metformin
History of asthma
�- start duonebs q6 , continue budesonide BID
BPH
- continue tamsulosin
DVT prophylaxis
continue Eliquis
Anticipated Discharge: Today
Subjective/Interval History
-
Date of Service: August 12, 2023
Patient feels terrible and he wants no further treatment nad wants to go back to assisted living facility.
Objective Data
-
Vital Signs:
Vital Signs
Temp Pulse Resp BP Pulse Ox
98.2 F 88 16 131/68 95
08/12/23 19:00 08/12/23 19:00 08/12/23 19:00 08/12/23 19:00 08/12/23 19:00
I&O
08/11/23 08/12/23 08/13/23
06:59 06:59 06:59
Intake Total 400 / 400 400 / 400
Output Total 100 / 100
Balance 400 / 400 300 / 300
Review of Systems
-
History Source: Family
All other systems: Reviewed and negative (except mentioned )
Constitutional: Reports Fatigue
Respiratory: Reports Cough
Physical Exam
-
General: Appears in Distress
HEENT: Normocephalic
Respiratory: Rhonchi
Cardiac: Regular Rhythm and S1/S2
Musculoskeletal: Edema, Right Lower Extrem and Edema, Left Lower Extrem
Skin: Warm and Dry
Neuro: Awake
Data Reviewed
-
Labs: Labs Reviewed by me and Discussed with Physician
--- NOTE | 2023-08-12 20:54 | W.DCSUMMARY ---
Addendum entered and electronically signed by Berto Aldana MD 08/12/23 21:10:
Attending Addendum:
Read reviewed and agree.
Original Note:
Documented by User: Jena Mejia MD, Resident 08/12/23 21:03
Discharge Summary
Discharge Data
Date of Admission: 08/10/23
Date of Discharge: 08/12/23
-
Pending Results: No
Hospital Course
DISCHARGE DIAGNOSIS
sepsis secondary to hospital acquired pneumonia
acute hypoxic respiratory failure
aspiration
Right hip wound
NIDDM
HOSPITAL COURSE
87-year-old male living with his in independent living facility ([facility]) with a past medical history of asthma, non insulin dependent diabetes, BPH, A-fib presenting emergency department today with cough for the past few weeks.� Patient
states that he always has a cough which has progressed with development of yellow/green sputum production.� He also reports of SOB and has been getting with cough spasm. He denies dyspnea with rest.� He does not use oxygen at baseline.� Patient has
not walked since right hip replacement surgery done on 07/21/2023. In the ED patient was started on vancomysin and zosyn for pneumonia. He was also started IV lasix 40 mg which caused his creatinine to bump up. His LE swelling did reduce. Patient was
frustrated and wanted to go back to his facility. Family agreed as well. On the day of discharge we had conversation with the patient's family and patient and agreed on hospice care, adult protective caseworker was contacted and arrangemts were made. On
hospital medications were discontinued, continue home medications.
On discharge vitals were BP 131/68 pulse 88, RR 16, temp 98.2, spO2 95
PHYSICAL EXAM : He is alert, awake, oriented to name, place and time. Her head is atraumatic, normocephalic. Neck is supple. Chest on auscultation diffuse rhonchi bilaterally. Heart is regular late without gallops or murmurs. Abdomen is soft,
nondistended, non tender. Extremities 2+ pitting edema.
Discharge Plan
-
Patient Disposition: Assisted Living
Discharge Diagnosis/Procedures: sepsis secondary to hospital acquired pneumonia
acute hypoxic respiratory failure
aspiration
LE edema with decreased peripheral pulses
right hip wound
Condition: Serious
Diet: As tolerated
Activity: With assistance
Driving Restrictions: No driving
Bathing Restrictions: None
Activity Restrictions/Additional Instructions:
Wound Care Instructions Right Hip Wound- Clean with normal saline or soap and water. Apply Bacitracin ointment and cover with large band-aid or silicone border foam. Change BID.
Left Heel- No-sting barrier wipe, 6x6 silicone border foam. Change Q 48 hours and PRN if loose or soiled. Please call [facility] RN or notify hospitalist if wound opens.
Sacral Wound- Clean with normal saline or soap and water. Apply Calazime to wound PRN or may cover with silicone border foam. If using foam, change q 48 hours and PRN if loose or soiled.
Static air overlay or air mattress
Keep heels off-loaded with fiber filled boots
Turning schedule
Keep HOB at 30 degrees with legs slightly elevated
Follow up at wound care center call for an appointment.
Referrals:
Dior Dobbins MD [Family Provider] -
Additional Discharge Medication Instructions: none
Prescriptions:
Continued
tamsulosin 0.4 MG capsule
0.4 mg PO DAILY
acetaminophen [Tylenol Extra Strength] 500 mg Tablet
500 mg PO Q6HPRN PRN (Reason: mild pain)
furosemide 20 mg Tablet
20 mg PO DAILY@0900
gabapentin 100 mg Capsule
100 mg PO DAILY
oxycodone 5 mg Tablet
5 mg PO Q4HPRN PRN (Reason: moderate pain)
Eliquis 5 mg Tablet
5 mg PO BID@0800,2000
atorvastatin 10 MG tablet
10 mg PO DAILY
sennosides [senna] 8.6 mg Tablet
8.6 mg PO DAILY
albuterol sulfate 2.5 mg /3 mL (0.083 %) Solution For Nebulization
2.5 mg INHALATION R Q4
Rx Instructions:
08/10/2023, Q4H@0000,0400,0800,1200,1600,2000.
polyethylene glycol 3350 [Miralax] 17 gram Powder In Packet
17 g PO DAILY PRN (Reason: constipation)
metformin 1,000 mg Tablet
1,000 mg PO DAILY
docusate sodium [Colace] 100 mg Capsule
100 mg PO DAILY
budesonide 0.5 mg/2 mL Suspension For Nebulization
0.5 mg INHALATION R DAILY
Chloraseptic Throat Barnard 1.4 % Aerosol,Barnard
2 spray MUCOUS MEMBRANE Q2H PRN (Reason: sore throat)
oxycodone 5 mg Tablet
10 mg PO Q4HPRN PRN (Reason: severe pain)
guaifenesin [Mucinex] 1,200 mg Tablet Extended Release 12hr
1,200 mg PO DAILY
cholecalciferol (vitamin D3) 125 mcg (5,000 unit) Tablet
125 mcg PO Q48H@0800
Qvar RediHaler 80 mcg/actuation Hfa Aerosol Breath Activated
2 inh INHALATION R DAILY
balsam manjula-castor oil Ointment
1 applic TOPICAL Q12H@0800,2000
Rx Instructions:
08/10/2023, apply 5 grams Q12H to right ankle.
Discharge Orders:
Discharge Patient (As Directed); Ordered 08/12/23
Ordered By: Jena Mejia
Discharge Date and Time
Discharge Date/Time: 08/12/23 20:42

Documented by User: Berto Aldana MD 08/12/23 21:09
Discharge Summary
Discharge Data
Date of Admission: 08/10/23
Date of Discharge: 08/12/23
Discharge Plan
-
Patient Disposition: Assisted Living
Discharge Diagnosis/Procedures: sepsis secondary to hospital acquired pneumonia
acute hypoxic respiratory failure
aspiration
LE edema with decreased peripheral pulses
right hip wound
Condition: Serious
Diet: As tolerated
Activity: With assistance
Driving Restrictions: No driving
Bathing Restrictions: None
Activity Restrictions/Additional Instructions:
Wound Care Instructions Right Hip Wound- Clean with normal saline or soap and water. Apply Bacitracin ointment and cover with large band-aid or silicone border foam. Change BID.
Left Heel- No-sting barrier wipe, 6x6 silicone border foam. Change Q 48 hours and PRN if loose or soiled. Please call [facility] RN or notify hospitalist if wound opens.
Sacral Wound- Clean with normal saline or soap and water. Apply Calazime to wound PRN or may cover with silicone border foam. If using foam, change q 48 hours and PRN if loose or soiled.
Static air overlay or air mattress
Keep heels off-loaded with fiber filled boots
Turning schedule
Keep HOB at 30 degrees with legs slightly elevated
Follow up at wound care center call for an appointment.
Referrals:
Dior Dobbins MD [Family Provider] -
Additional Discharge Medication Instructions: none
Prescriptions:
Continued
tamsulosin 0.4 MG capsule
0.4 mg PO DAILY
acetaminophen [Tylenol Extra Strength] 500 mg Tablet
500 mg PO Q6HPRN PRN (Reason: mild pain)
furosemide 20 mg Tablet
20 mg PO DAILY@0900
gabapentin 100 mg Capsule
100 mg PO DAILY
oxycodone 5 mg Tablet
5 mg PO Q4HPRN PRN (Reason: moderate pain)
Eliquis 5 mg Tablet
5 mg PO BID@0800,2000
atorvastatin 10 MG tablet
10 mg PO DAILY
sennosides [senna] 8.6 mg Tablet
8.6 mg PO DAILY
albuterol sulfate 2.5 mg /3 mL (0.083 %) Solution For Nebulization
2.5 mg INHALATION R Q4
Rx Instructions:
08/10/2023, Q4H@0000,0400,0800,1200,1600,2000.
polyethylene glycol 3350 [Miralax] 17 gram Powder In Packet
17 g PO DAILY PRN (Reason: constipation)
metformin 1,000 mg Tablet
1,000 mg PO DAILY
docusate sodium [Colace] 100 mg Capsule
100 mg PO DAILY
budesonide 0.5 mg/2 mL Suspension For Nebulization
0.5 mg INHALATION R DAILY
Chloraseptic Throat Barnard 1.4 % Aerosol,Barnard
2 spray MUCOUS MEMBRANE Q2H PRN (Reason: sore throat)
oxycodone 5 mg Tablet
10 mg PO Q4HPRN PRN (Reason: severe pain)
guaifenesin [Mucinex] 1,200 mg Tablet Extended Release 12hr
1,200 mg PO DAILY
cholecalciferol (vitamin D3) 125 mcg (5,000 unit) Tablet
125 mcg PO Q48H@0800
Qvar RediHaler 80 mcg/actuation Hfa Aerosol Breath Activated
2 inh INHALATION R DAILY
balsam manjula-castor oil Ointment
1 applic TOPICAL Q12H@0800,1999
Rx Instructions:
08/10/2023, apply 5 grams Q12H to right ankle.
Discharge Orders:
Discharge Patient (As Directed); Ordered 08/12/23
Ordered By: Heba Roberto
Discharge Date and Time
Discharge Date/Time: 08/12/23 20:42
== END 2023-08-12 20:42 | disposition hospice, home (50) | DRG 871 ==
LOC: 4 WEST ACU 14:41
PROVIDERS: Physician Assistant; Student in an Organized Health Care Education/Training Program; ADMITTING PHYSICIAN Family Medicine; ATTENDING PHYSICIAN Family Medicine; CONSULT PHYSICIAN Orthopaedic Surgery Hand Surgery; EMERGENCY PHYSICIAN Emergency Medicine; FAMILY PHYSICIAN Internal Medicine Geriatric Medicine
DX: A41.9 Sepsis, unspecified organism (principal); J69.0 Pneumonitis due to inhalation of food and vomit; J96.01 Acute respiratory failure with hypoxia; J45.909 Unspecified asthma, uncomplicated; E11.9 Type 2 diabetes mellitus without complications; N40.0 Benign prostatic hyperplasia without lower urinary tract symptoms; I48.91 Unspecified atrial fibrillation; Y95 Nosocomial condition; Z87.01 Personal history of pneumonia (recurrent); Z85.038 Personal history of other malignant neoplasm of large intestine; Z66 Do not resuscitate; Z11.52 Encounter for screening for COVID-19; Z96.641 Presence of right artificial hip joint; Z86.73 Personal history of transient ischemic attack (TIA), and cerebral infarction without residual deficits
CPT/HCPCS: 71046; 74230; 80048; 80053; 81003; 81015; 82962; 83036; 83605; 83880; 84145; 85025; 87040; 87086; 87449; 87502; 87641; 87811; 87899; 92610; 92611; 93922; 93925; 94640; 96365; 96375; 96376; 99284